=== PATIENT | female | born 1980 | race Caucasian/White ===

== ENCOUNTER 2018-04-04 07:57 | Day surgery (SDC) | payer OTHER ==
[~2018-04-04] VITALS: Ht 167.6 cm; Wt 120.2 kg
[~2018-04-04 07:57] MED LIST: BENZ100A PO; BUSP5 PO; Benadryl 50 mg50 MG PO; Dicyclomine HCl20 MG PO; Lyrica25 MG PO; Macrobid 100 M100 MG PO; PROP10 PO; Pepcid20 MG PO; Pyridium200 MG PO; RISPERIDONE M TA PO; SERT100 PO; XANAX
--- NOTE | 2018-04-04 08:24 | NUR ---
ADMISSION STARTED PATIENT NERVOUS BUT COOPERATIVE. Ambulatory in Day Surgery History, Chart, Medications and Allergies reviewed before start of procedure.Patient confirms NPO status and agrees with scheduled surgery. Patient States Post-Procedure ride home has been arranged.
--- NOTE | 2018-04-04 10:11 | NUR ---
04/04/18 1010 Jose Gastelum Bite Block Placed3-LEAD EKG REVIEWED WITH PHYSICIAN PRIOR TO START OF PROCEDURE.Patient to ENDO 1History, Chart, Medications and Allergies reviewed before start of procedure.MONITOR INTACT WITH CONTINUOUS PULSE OXIMETRY AND INTERMITTENT BP.O2 VIA N/C INTACT THROUGHOUT SEDATION/PROCEDURE.See Anesthesia record.
--- NOTE | 2018-04-04 11:17 | NUR ---
explained to ky she coughed a lot during procedure and may experiance a sore throat. also reminded of the hurricaine spray used and its numbing capabilities. patient c/o feeling flem or something hangin in back of throat.
--- NOTE | 2018-04-04 11:33 | NUR ---
Discharge instructions reviewed with patient. Patient verbalizes understanding. Copy given to patient to take home. Patient States Post-Procedure ride home has been arranged. Discharged via wheelchair to private car for ride home.
== END 2018-04-04 22:55 | disposition home or self-care (01) ==
LOC: ORSCMMR 07:57 → ORD 09:30 → ORSCMMR 22:55
PROVIDERS: Internal Medicine Gastroenterology
PROC: 0DBE8ZX Excision of Large Intestine, Via Natural or Artificial Opening Endoscopic, Diagnostic (ICD-10-PCS; principal; 2018-04-04 09:30)
PROC: 0DB68ZX Excision of Stomach, Via Natural or Artificial Opening Endoscopic, Diagnostic (ICD-10-PCS; principal; 2018-04-04 09:30)
PROC: 0DBN8ZX Excision of Sigmoid Colon, Via Natural or Artificial Opening Endoscopic, Diagnostic (ICD-10-PCS; principal; 2018-04-04 09:30)
PROC: 0DB88ZX Excision of Small Intestine, Via Natural or Artificial Opening Endoscopic, Diagnostic (ICD-10-PCS; principal; 2018-04-04 09:30)
DX: K21.9 Gastro-esophageal reflux disease without esophagitis (principal); R19.4 Change in bowel habit; R10.13 Epigastric pain; K64.4 Residual hemorrhoidal skin tags; G47.33 Obstructive sleep apnea (adult) (pediatric); F40.00 Agoraphobia, unspecified; Z79.899 Other long term (current) drug therapy; E66.01 Morbid (severe) obesity due to excess calories; Z68.39 Body mass index [BMI] 39.0-39.9, adult; K63.5 Polyp of colon
CPT/HCPCS: 88305; 88342; J7120